=== PATIENT | male | born 1995 | race African-American/Black ===

== ENCOUNTER 2023-01-04 13:00 | Emergency (ER) | payer BC, SELFPAY ==
[2023-01-04] VITALS (17 sets, daily range): BP systolic 124–146; BP diastolic 58–111; PULSE 88–95; RESP 16; TEMP 36.1; O2SAT 97–100
--- NOTE | ~2023-01-04 | CT_ITS ---
EXAMINATION: CT abdomen pelvis w con DATE: 01/04/2023 14:05 INDICATION: TECHNIQUE: Computed tomography (CT) of the abdomen and pelvis was performed with 100 cc Omnipaque 350 intravenous contrast. The dose-length product was 1543.55 mGy-cm. Automated exposure control and ite rative reconstruction technique were employed. COMPARISON: None. FINDINGS: Bibasilar dependent atelectasis. Heart size normal. No significant pleural or pericardial e ffusion. The liver, spleen, pancreas, adrenal glands, kidneys are unremarkable. Gallbladder is present. Nonobs tructive bowel gas pattern. No evidence for appendicitis or diverticulitis. No significant vascular a bnormality. No lymphadenopathy. No free air or free fluid. No acute osseous abnormality. IMPRESSION: 1. No acute abdominal abnormality. Reviewed, dictated and finalized at location A.
--- NOTE | 2023-01-04 13:23 | ED.NAVMDI ---
HPI - Nausea/Vomiting/Diarrhea General Chief complaint: Nausea/Vomiting/Diarrhea Stated complaint: vomiting Time Seen by Provider: 01/04/23 13:03 Source: patient Mode of arrival: ambulatory Limitations: no limitations History of Present Illness HPI Narrative: 27-year-old male presents today with complaints of nausea, vomiting, diarrhea that started on 2 AM this morning. Also with abdominal cramping. Patient states he feels feverish but denies taking his temp. Denies chills, body aches, sick contacts. Denies any urinary complaints and denies recreational drug usage. No significant know medical hx. Related Data Allergies Allergy/AdvReac Type Severity Reaction Status Date / Time No Known Allergies Allergy Verified 01/04/23 13:03 Review of Systems Review of Systems: All systems reviewed & are unremarkable except as noted in HPI and below ENT: Reports as per HPI Cardiovascular: Cardiovascular: Reports as per HPI Respiratory: Respiratory: Reports as per HPI Gastrointestinal: Gastrointestinal: Reports as per HPI Musculoskeletal: Musculoskeletal: Reports as per HPI Integumentary/Breasts: Skin/Breast: Reports as per HPI Neurologic: Reports as per HPI Psychiatric: Psychiatric: Reports as per HPI Exam Const: General: cooperative, healthy appearing, comfortable, no acute distress and well developed Orientation/consciousness: patient oriented x3 HENMT: Head: normal to inspection Eyes: General: appearance normal, both eyes and all related structures Resp: Effort & Inspection: normal respiratory effort and able to speak in complete sentences Auscultation: clear to auscultation bilaterally Cardio: Rate: regular rate Rhythm: regular rhythm Heart sounds: S1 normal heart sound present and S2 normal heart sound present GI: Inspection: normal to inspection GI Palp: Yes abdominal tenderness (generalized), Yes Soft to palpation and Yes No hepatosplenomegaly present Neuro: General: patient oriented x3 Course Course Emergency Course: Patient feeling better after IV fluids, Zofran. Patient able to tolerate p.o. fluids. CT of the abdomen was negative for any acute process. States he is feeling better will be discharged home. Vital Signs Vital signs: Vital Signs Temperature 97.0 F L 01/04/23 13:08 Pulse Rate 88 01/04/23 13:08 Respiratory Rate 16 01/04/23 13:08 Blood Pressure 146/59 H 01/04/23 13:08 Pulse Oximetry 98 01/04/23 13:08 Oxygen Delivery Room Air 01/04/23 13:08 Temperature 97.0 F L 01/04/23 13:08 Pulse Rate 89 01/04/23 15:49 Respiratory Rate 16 01/04/23 15:49 Blood Pressure 131/66 01/04/23 15:49 Pulse Oximetry 97 01/04/23 15:49 Oxygen Delivery Room Air 01/04/23 13:08 MDM - Nausea/Vomiting/Diarrhea MDM Narrative Medical decision making narrative: 27-year-old male HPI as noted. Differentials as noted below. Work-up to include CBC, CMP, urinalysis, UDS, CT of the abdomen and pelvis. CBC and CMP without concerning findings. Urinalysis without blood or signs of infection. CT of the abdomen shows no acute process. Urine was positive for marijuana which could be contributing to the abdominal pain with the nausea and vomiting. Upon original assessment patient denied marijuana usage. Will be discharged home with Zofran as needed push fluids, and to sustain from marijuana usage. Plan follow-up with primary care provider. Differential Diagnosis Differential diagnosis: Likely traveler's diarrhea, food poisoning, gastroenteritis and drug-induced nausea and vomiting Medical Records Attestation: I reviewed the patient's medical records. Lab Data Attestation: I reviewed the patient's lab results. 01/04/23 13:22 01/04/23 13:22 Labs: Lab Results 01/04/23 01/04/23 Range/Units 13:22 14:13 WBC 9.2 (4.5-10.0) K/mm3 RBC 5.22 (4.6-6.20) M/mm3 Hgb 15.5 (14.0-18.0) g/dL Hct 45.7 (42.0-52.0) % MCV 87.5 (80-100) fl [facility]CH
[2023-01-04] MEDS: PANTOPRAZOLE SODIUM IV 40 MG VIAL IV PUSH (13:28)
[2023-01-04] MEDS: ONDANSETRON INJ 4 MG/2 ML VIAL IV PUSH (13:28)
[2023-01-04] MEDS: SODIUM CHLORIDE 0.9% IV 2,000 ML 999 ML IV CONT (13:28)
[2023-01-04 13:29] LABS: Basophils Percent Auto 0.3 % (0.2-1.2); Eosinophils Percent Auto 0.3 % (0-4.4); Hematocrit 45.7 % (42.0-52.0); Hemoglobin 15.5 g/dL (14.0-18.0); Immature Granulocyte Absolute 0.05 K/mm3 (0.00-0.031); Immature Granulocyte Percent A 0.5 % (0-0.5); Lymphocytes Absolute Auto 1.16 K/mm3 (0.9-3.2); Lymphocytes Percent Auto 12.6 % (18.3-44.2); Mean Corpuscular HGB Conc 33.9 g/dl (32-36); Mean Corpuscular Hemoglobin 29.7 pg (26-34); Mean Corpuscular Volume 87.5 fl (80-100); Mean Platelet Volume 11.6 fl (7.4-10.4); Monocytes Absolute Auto 0.4 K/mm3 (0.1-0.6); Monocytes Percent Auto 4.4 % (2.6-8.5); Neutrophils Absolute Auto 7.5 K/mm3 (1.3-6.7); Neutrophils Percent Auto 81.9 % (45.5-73.1); Platelet Count Result 227 k/mm3 (150-375); Red Blood Count 5.22 M/mm3 (4.6-6.20); Red Cell Distribution Width 12.8 % (11.5-14.5); White Blood Count 9.2 K/mm3 (4.5-10.0)
[2023-01-04 13:44] LABS: Alanine Aminotransferase 39 U/L (6-50); Albumin Level 4.8 g/dL (3.5-5.1); Alkaline Phosphatase 63 U/L (38-126); Anion Gap 16 mmol/L (8-16); Aspartate Amino Transferase 28 U/L (17-59); Bilirubin,Total 0.8 mg/dL (0.2-1.3); Blood Urea Nitrogen 14 mg/dL (9-20); Calcium 9.3 mg/dL (8.4-10.2); Carbon Dioxide 21 mmol/L (22-30); Chloride 105 mmol/L (98-107); Estimated CRCL calculation 162 ml/min; Estimated Glomerular Filt Rate > 60; Glucose 117 mg/dL (65-110); Lipase 65 U/L (23-300); Potassium 4.1 mmol/L (3.4-5.0); Sodium 142 mmol/L (137-145)
[2023-01-04 14:44] LABS: Appearance Urine Clear (Clear); Bacteria Urine None Seen /hpf; Bilirubin Urine Negative (Negative); Blood Urine Negative (Negative); Color Urine Yellow (Yellow); Glucose Urine UA Negative (Negative); Ketones Urine Trace mg/dL (Negative); Leukocyte Esterase Ur Negative LEU/UL (Negative); Nitrate Urine Negative (Negative); Non Pathogenic Casts 0-2; Protein Urine Trace mg/dL (Negative); RBC Urine 0-2 /hpf (0-2); Specific Grav Ur 1.042 (1.001-1.035); Squamous Epithelial Cell Urine None seen /hpf (Few); Urobilinogen Urine 0.2 mg/dL (<2.0); WBC Urine 0-5 /hpf; pH Urine 5.5 (5.0-9.0)
[2023-01-04 14:45] LABS: Add Urine Microscopic? YES
[2023-01-04 14:54] LABS: Amphetamine Screen Urine Negative (Negative); Barbiturate Screen Urine Negative (Negative); Benzodiazepines Screen Urine Negative (Negative); Cannabinoid Screen Urine Positive (Negative); Cocaine Screen Urine Negative (Negative); Methadone Screen Urine Negative (Negative); Opiate Screen Urine Negative (Negative); Phencyclidine Screen Urine Negative (Negative)
== END 2023-01-04 15:50 | disposition home or self-care (01) ==
PROVIDERS: Emergency Medicine; Emergency Provider Nurse Practitioner Family
DX: R11.2 Nausea with vomiting, unspecified (principal)
CPT/HCPCS: 36415; 74177; 80053; 80307; 81001; 83690; 85025; 96361; 96374; 96375; 99284; C9113; J2405; J7030; Q9967